=== PATIENT | female | born 1985 | race Two or more races ===

== ENCOUNTER 2017-06-04 09:20 | Emergency (ER) | payer MEDICAID ==
[~2017-06-04] VITALS: Ht 154.9 cm; Wt 107.0 kg
[2017-06-04 09:23] VITALS: BP 111/74
[2017-06-04] MEDS ORDERED: WATER PILL PO (09:32)
[2017-06-04] MEDS ORDERED: POTA99TA24 PO (09:32)
[2017-06-04] MEDS ORDERED: IBUPROFEN 200 MG TABLET ONE (09:46)
[2017-06-04] MEDS ORDERED: IBUPROFEN 200 MG TABLET PO ONE (10:00)
== END 2017-06-04 10:36 | disposition home or self-care (01) ==
LOC: ED 10:30
DX: S63.522A Sprain of radiocarpal joint of left wrist, initial encounter (principal); X50.0XXA Overexertion from strenuous movement or load, initial encounter; Y93.89 Activity, other specified; Y92.098 Other place in other non-institutional residence as the place of occurrence of the external cause; Y99.8 Other external cause status
CPT/HCPCS: 29125; 99284

== ENCOUNTER 2020-03-02 16:11 | Emergency (ER) | payer MEDICAID ==
[~2020-03-02] VITALS: Ht 157.5 cm; Wt 91.0 kg
[~2020-03-02 16:11] MED LIST: POTA99TA24 PO; WATER PILL PO
--- NOTE | 2020-03-02 17:15 | NUR ---
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
[2020-03-02 17:44] LABS: BASOPHILS % (AUTO) 1 % (0-1); EOSINOPHILS % (AUTO) 0 % (1-7); LYMPHOCYTES % (AUTO) 17 % (22-44); MEAN CORPUSCULAR HEMOGLOBIN 32.1 pg (27.0-34.8); MEAN CORPUSCULAR HGB CONC 33.5 g/dL (32.4-35.8); MEAN PLATELET VOLUME 8.3 fL (7.4-10.4); MONOCYTES % (AUTO) 6 % (2-9); NEUTROPHILS % (AUTO) 76 % (42-75); PLATELET COUNT 251 x10^3/uL (130-400); RED BLOOD COUNT 4.54 x10^6/uL (3.82-5.3)
[2020-03-02 17:48] LABS: MD NO
[2020-03-02 18:00] LABS: ALBUMIN 4.1 g/dL (3.4-5.0); ANION GAP 7 mmol/L (5-15); CALCIUM 9.2 mg/dL (8.5-10.1); CHLORIDE 105 mmol/L (98-107)
[2020-03-02 18:05] LABS: ALANINE AMINOTRANSFERASE 32 U/L (12-78); ALKALINE PHOSPHATASE 99 U/L (45-117); BILIRUBIN,TOTAL 1.3 mg/dL (0.2-1.0); CREATININE 0.71 mg/dL (0.55-1.02); TOTAL PROTEIN 8.1 g/dL (6.4-8.2); TROPONIN I < 0.015 ng/mL (0.000-0.045)
--- NOTE | 2020-03-02 18:30 | NUR ---
PT AMBULATED TO BR, SLOW BUT STEADY GAIT. PLACED FOR RECHECK
--- NOTE | 2020-03-02 18:53 | NUR ---
BEDSIDE REPORT FROM ALEC ELKINS. PT LAYING IN BED, MINE. CONNECTED TO CARDIAC, BP AND O2 MONITORS. VSS.
[2020-03-02 19:12] VITALS: BP 126/91
== END 2020-03-02 19:15 | disposition home or self-care (01) ==
LOC: ED 18:46
DX: R42 Dizziness and giddiness (principal); F15.10 Other stimulant abuse, uncomplicated; R00.2 Palpitations; R07.89 Other chest pain; F41.1 Generalized anxiety disorder; M79.10 Myalgia, unspecified site; R51.9 Headache, unspecified; R00.0 Tachycardia, unspecified; R10.10 Upper abdominal pain, unspecified
CPT/HCPCS: 36415; 71045; 80053; 84484; 85025; 85379; 93005; 99285